=== PATIENT | male | born 1970 | race Hispanic/Latino ===

== ENCOUNTER 2020-10-03 15:00 | Inpatient (IN) | payer BC, OTHER ==
[2020-10-03] MEDS ORDERED: Boostrix 0.5 ML (Tdap) VIAL ONE (15:06)
[2020-10-03] MEDS ORDERED: Fentanyl 100 MCG/2 ML VIAL ONE ×6 (15:15→23:54)
[2020-10-03 15:37] LABS: PTT 26.6 sec (22.9-36.1); Prothrombin Time 13.5 sec (12.0-14.7)
[2020-10-03 15:38] LABS: Hemoglobin 16.3 g/dL (14.0-18.0); Mean Corpuscular HGB CONC 33.1 g/dL (32.0-36.0); Mean Corpuscular Hemoglobin 28.7 pg (27.0-31.0); Mean Corpuscular Volume 86.9 fL (78.0-98.0); Mean Platelet Volume 8.4 fL (7.4-10.4); Platelet Count 284 thou/uL (130-400); RBC Distribution Width 13.6 % (11.5-14.5); Red Blood Cell (RBC) Count 5.66 mill/uL (4.70-6.10)
[2020-10-03] MEDS ORDERED: Morphine 2 MG/ML VIAL SLOW IVP PRN (15:52)
[2020-10-03] MEDS ORDERED: Ondansetron PF 4 MG/2 ML Vial IVP PRN (15:52)
[2020-10-03] MEDS ORDERED: TETANUS AND DIPHTHERIA TOX/PF 0.5 ML DISP.SYRIN IM ONE (15:52)
[2020-10-03] MEDS ORDERED: HYDROcodone/Acetaminophen 10/325 mg Tablet PO PRN (15:52)
[2020-10-03] MEDS ORDERED: hydrALAZINE 20 MG/ML VIAL SLOW IVP PRN (15:52)
[2020-10-03 15:53] LABS: ALT (SGPT) 92 U/L (8-55); AST (SGOT) 42 U/L (5-34); Albumin 4.2 g/dL (3.5-5.0); Alkaline Phosphatase 117 U/L (40-110); Anion Gap 24 mmol/L (10-20); BUN (Urea Nitrogen) 21 mg/dL (8.9-20.6); Bilirubin, Total 0.6 mg/dL (0.2-1.2); Calc. Creatinine Clearance 0 mL/min (70-130); Calcium 9.4 mg/dL (7.8-10.44); Carbon Dioxide 20 mmol/L (22-29); Chloride 99 mmol/L (98-107); Globulin 4.7 g/dL (2.4-3.5); Glucose 123 mg/dL (70-105); Potassium 4.5 mmol/L (3.5-5.1); Protein, Total 8.9 g/dL (6.0-8.3); Sodium 138 mmol/L (136-145)
[2020-10-03 16:06] LABS: Eosinophils 1 % (0-10); Lymphocytes 48 % (21-51); MDiff Complete? YES; Monocytes 5 % (0-10); Neutrophil 43 % (42-75); Platelet Morphology Comment Appears Adequate; RBC Morphology Normal; Reactive Lymphocytes 3 % (0-10)
[2020-10-03] MEDS ORDERED: Morphine 2 MG/ML VIAL ONE (16:07)
[2020-10-03] MEDS ORDERED: CEFAZOLIN 2 GM in Premix Bag 1 BAG IVPB SCH (16:20)
[2020-10-03] MEDS ORDERED: Dextrose 50% Abboject 50 ML SYRINGE SLOW IVP PRN (16:54)
[2020-10-03] MEDS ORDERED: Dextrose 5% in Water 1,000 ML IV PRN (16:54)
[2020-10-03] MEDS: Sodium Chloride 0.9% 1,000 ML IV SCH (17:05)
[2020-10-03] MEDS: Morphine 4 MG/ML VIAL SLOW IVP PRN (17:06)
[2020-10-03 17:46] VITALS: BMI 34.3
[2020-10-03 19:44] LABS: SARS-CoV-2 NAA Rapid Test Not Detected (NotDetected)
[2020-10-03] MEDS ORDERED: Midazolam HCl 2 mg/2 ml Vial ONE (20:19)
[2020-10-03] MEDS ORDERED: Rocuronium Bromide 10 MG/ML (10ML VIAL) ONE (20:36)
[2020-10-03] MEDS ORDERED: Dexamethasone 20 MG/5 ML VIAL ONE (20:36)
[2020-10-03] MEDS ORDERED: PROPOFOL 200 MG/20 ML VIAL ONE (20:36)
[2020-10-03] MEDS ORDERED: Lidocaine 1% PF 5 ML VIAL ONE (20:36)
[2020-10-03] MEDS ORDERED: Ondansetron PF 4 MG/2 ML Vial ONE (20:36)
[2020-10-03] MEDS ORDERED: Glycopyrrolate 0.2 MG/ML 5 ML SYRINGE ONE (20:36)
[2020-10-03] MEDS ORDERED: Succinylcholine 200 MG/10 ml SYRINGE FS ONE (20:36)
[2020-10-03] MEDS: Famotidine/PF 20 mg/2ml Vial SLOW IVP SCH (22:50)
[2020-10-03] MEDS: Famotidine 20 MG TAB PO SCH (22:50)
[2020-10-03] MEDS ORDERED: Promethazine HCl 25 MG/ML VIAL IM PRN ×2 (22:58→23:44)
[2020-10-03] MEDS ORDERED: Ondansetron HCl/PF 4 MG/2 ML Vial IVP PRN ×2 (22:58→23:44)
[2020-10-03] MEDS ORDERED: HYDROmorphone 2 MG/ML VIAL SLOW IVP PRN (22:58)
[2020-10-03] MEDS ORDERED: Promethazine HCl 25 MG/ML VIAL SLOW IVP PRN ×2 (22:58→23:44)
[2020-10-03] MEDS ORDERED: Meperidine HCl/PF 25 MG/ML VIAL ONE (23:08)
[2020-10-03] MEDS ORDERED: Meperidine HCl/PF 25 MG/ML VIAL SLOW IVP PRN ×2 (23:44)
[2020-10-04] MEDS: CEFAZOLIN 2 GM in Premix Bag 1 BAG IVPB SCH ×3 (01:02→17:15)
[2020-10-04] MEDS: HYDROcodone/Acetaminophen 10/325 mg Tablet PO PRN ×4 (01:03→23:07)
[2020-10-04] MEDS: Morphine 4 MG/ML VIAL SLOW IVP PRN ×2 (02:54→05:34)
[2020-10-04 05:46] LABS: INR-International Normal Ratio 1.1; Prothrombin Time 13.9 sec (12.0-14.7)
[2020-10-04 05:47] LABS: PTT 29.8 sec (22.9-36.1)
[2020-10-04 05:55] LABS: #Lymphocytes 1.2 thou/uL (1.20-3.40); #Monocytes 0.6 thou/uL (0.11-0.59); #Neutrophils 14.2 thou/uL (1.40-6.50); %Eosinophils 0.1 % (0.0-10.0); %Lymphocytes 7.4 % (21.0-51.0); %Monocytes 3.8 % (0.0-10.0); %Neutrophils 88.7 % (42.0-75.0); Hemoglobin 13.8 g/dL (14.0-18.0); Mean Corpuscular HGB CONC 33.2 g/dL (32.0-36.0); Mean Corpuscular Volume 87.4 fL (78.0-98.0); Platelet Count 218 thou/uL (130-400); RBC Distribution Width 13.3 % (11.5-14.5); Red Blood Cell (RBC) Count 4.74 mill/uL (4.70-6.10)
[2020-10-04 06:08] LABS: ALT (SGPT) 63 U/L (8-55); AST (SGOT) 36 U/L (5-34); Albumin 3.7 g/dL (3.5-5.0); Alkaline Phosphatase 100 U/L (40-110); Anion Gap 13 mmol/L (10-20); BUN (Urea Nitrogen) 13 mg/dL (8.9-20.6); Bilirubin, Total 0.8 mg/dL (0.2-1.2); Calc. Creatinine Clearance 144 mL/min (70-130); Calcium 8.2 mg/dL (7.8-10.44); Carbon Dioxide 25 mmol/L (22-29); Chloride 102 mmol/L (98-107); Globulin 3.6 g/dL (2.4-3.5); Glucose 150 mg/dL (70-105); Potassium 4.2 mmol/L (3.5-5.1); Protein, Total 7.3 g/dL (6.0-8.3); Sodium 136 mmol/L (136-145)
[2020-10-04] MEDS: Sodium Chloride 0.9% 1,000 ML IV SCH ×2 (08:04→17:37)
[2020-10-04] MEDS: Famotidine/PF 20 mg/2ml Vial SLOW IVP SCH ×2 (08:05→21:18)
[2020-10-04] MEDS: Famotidine 20 MG TAB PO SCH ×3 (08:06→21:15)
[2020-10-04] MEDS ORDERED: CEFAZOLIN 2 GM in Premix Bag 1 BAG IVPB SCH (12:30)
[2020-10-04] MEDS: traMADol HCl 50 MG TAB PO PRN (13:17)
[2020-10-04] MEDS: Acetaminophen 500 MG TAB PO PRN (13:18)
[2020-10-05] MEDS: Sodium Chloride 0.9% 1,000 ML IV SCH ×2 (04:54→13:42)
[2020-10-05] MEDS ORDERED: Fentanyl 250 MCG/5 ML VIAL ONE (07:54)
[2020-10-05] MEDS ORDERED: Midazolam HCl 2 mg/2 ml Vial ONE (07:54)
[2020-10-05] MEDS: Famotidine 20 MG TAB PO SCH ×2 (08:05→21:26)
[2020-10-05] MEDS: Famotidine/PF 20 mg/2ml Vial SLOW IVP SCH ×2 (08:06→21:27)
[2020-10-05] MEDS ORDERED: Meperidine HCl/PF 25 MG/ML VIAL SLOW IVP PRN ×2 (08:06→11:15)
[2020-10-05] MEDS ORDERED: Ondansetron HCl/PF 4 MG/2 ML Vial IVP PRN ×2 (08:06→11:15)
[2020-10-05] MEDS ORDERED: Promethazine HCl 25 MG/ML VIAL SLOW IVP PRN (08:06)
[2020-10-05] MEDS ORDERED: Promethazine HCl 25 MG/ML VIAL IM PRN (08:06)
[2020-10-05] MEDS ORDERED: Lidocaine 1% PF 5 ML VIAL ONE (08:48)
[2020-10-05] MEDS ORDERED: Ketorolac Tromethamine 30 MG/ML VIAL ONE (08:48)
[2020-10-05] MEDS ORDERED: PROPOFOL 200 MG/20 ML VIAL ONE (08:48)
[2020-10-05] MEDS ORDERED: Rocuronium Bromide 10 MG/ML (10ML VIAL) ONE (08:48)
[2020-10-05] MEDS ORDERED: Ondansetron PF 4 MG/2 ML Vial ONE (08:48)
[2020-10-05] MEDS ORDERED: Glycopyrrolate 0.2 MG/ML 5 ML SYRINGE ONE (08:48)
[2020-10-05] MEDS ORDERED: Bupivacaine 0.25% HCL 30 ML VIAL ONE (09:00)
[2020-10-05] MEDS ORDERED: Lidocaine 1% w/Epinephrine 1:100K 20 ML VIAL ONE (09:00)
[2020-10-05] MEDS ORDERED: Fentanyl 100 MCG/2 ML VIAL ONE (10:41)
[2020-10-05] MEDS ORDERED: Non-Formulary Medication 1 EACH PO PRN (11:12)
[2020-10-05] MEDS ORDERED: Ketorolac Tromethamine 30 MG/ML VIAL IVP PRN (11:15)
[2020-10-05] MEDS ORDERED: Morphine Sulfate 2 MG/ML SYRINGE SLOW IVP PRN (11:15)
[2020-10-05] MEDS ORDERED: Ketorolac Tromethamine 30 MG/ML VIAL IM/IV PRN (11:15)
[2020-10-05] MEDS ORDERED: Meperidine HCl/PF 25 MG/ML VIAL IV PRN (11:15)
[2020-10-05] MEDS ORDERED: HYDROmorphone 2 MG/ML VIAL SLOW IVP PRN (11:15)
[2020-10-05] MEDS ORDERED: PACU-Morphine 4MG/ML VIAL SLOW IVP PRN (11:15)
[2020-10-05] MEDS ORDERED: Promethazine HCl 25 MG/ML VIAL IM/IV PRN (11:15)
[2020-10-05] MEDS: Morphine 4 MG/ML VIAL SLOW IVP PRN (11:31)
[2020-10-05] MEDS: HYDROcodone/Acetaminophen 10/325 mg Tablet PO PRN ×2 (12:21→18:36)
[2020-10-05] MEDS: CEFAZOLIN 2 GM in Premix Bag 1 BAG IVPB SCH ×2 (13:40→21:27)
[2020-10-05] MEDS: traMADol HCl 50 MG TAB PO PRN ×2 (17:01→22:44)
[2020-10-05] MEDS: Ibuprofen 600 MG TAB PO PRN (17:02)
[2020-10-06] MEDS: HYDROcodone/Acetaminophen 10/325 mg Tablet PO PRN ×4 (00:21→22:08)
[2020-10-06] MEDS: traMADol HCl 50 MG TAB PO PRN ×2 (04:00→08:23)
[2020-10-06] MEDS: Ibuprofen 600 MG TAB PO PRN ×2 (04:00→08:22)
[2020-10-06] MEDS: Sodium Chloride 0.9% 1,000 ML IV SCH ×3 (04:02→20:49)
[2020-10-06] MEDS: CEFAZOLIN 2 GM in Premix Bag 1 BAG IVPB SCH (05:00)
[2020-10-06 05:22] LABS: #Eosinphils 0.1 thou/uL (0.0-0.7); #Lymphocytes 2.3 thou/uL (1.20-3.40); #Monocytes 1.5 thou/uL (0.11-0.59); #Neutrophils 11.3 thou/uL (1.40-6.50); %Basophils 0.2 % (0.0-1.0); %Eosinophils 0.4 % (0.0-10.0); %Lymphocytes 15.2 % (21.0-51.0); %Monocytes 9.8 % (0.0-10.0); %Neutrophils 74.4 % (42.0-75.0); Hemoglobin 12.6 g/dL (14.0-18.0); Mean Corpuscular HGB CONC 31.4 g/dL (32.0-36.0); Mean Corpuscular Hemoglobin 27.7 pg (27.0-31.0); Mean Corpuscular Volume 88.2 fL (78.0-98.0); Mean Platelet Volume 7.6 fL (7.4-10.4); Platelet Count 173 thou/uL (130-400); RBC Distribution Width 13.4 % (11.5-14.5); Red Blood Cell (RBC) Count 4.56 mill/uL (4.70-6.10); White Blood Cell (WBC) Count 15.2 thou/uL (4.8-10.8)
[2020-10-06] MEDS: Famotidine 20 MG TAB PO SCH ×2 (08:23→20:45)
[2020-10-06] MEDS: Famotidine/PF 20 mg/2ml Vial SLOW IVP SCH ×2 (08:24→20:49)
[2020-10-06] MEDS: Acetaminophen 500 MG TAB PO PRN (22:06)
[2020-10-07] MEDS: Sodium Chloride 0.9% 1,000 ML IV SCH (05:56)
[2020-10-07 05:58] LABS: #Eosinphils 0.2 thou/uL (0.0-0.7); #Monocytes 1.5 thou/uL (0.11-0.59); #Neutrophils 8.6 thou/uL (1.40-6.50); %Basophils 0.2 % (0.0-1.0); %Eosinophils 1.5 % (0.0-10.0); %Lymphocytes 22.6 % (21.0-51.0); %Neutrophils 64.7 % (42.0-75.0); Hemoglobin 10.6 g/dL (14.0-18.0); Mean Corpuscular HGB CONC 32.3 g/dL (32.0-36.0); Mean Corpuscular Hemoglobin 28.4 pg (27.0-31.0); Mean Corpuscular Volume 87.9 fL (78.0-98.0); Mean Platelet Volume 7.5 fL (7.4-10.4); Platelet Count 197 thou/uL (130-400); RBC Distribution Width 13.6 % (11.5-14.5); Red Blood Cell (RBC) Count 3.74 mill/uL (4.70-6.10); White Blood Cell (WBC) Count 13.3 thou/uL (4.8-10.8)
[2020-10-07] MEDS ORDERED: Cyclobenzaprine 10 MG TAB PO PRN (07:35)
[2020-10-07] MEDS ORDERED: traMADol HCl 50 MG TAB PO SCH (07:45)
[2020-10-07] MEDS ORDERED: Ferrous Sulfate 325 MG TAB PO SCH (08:00)
[2020-10-07] MEDS ORDERED: Ascorbic Acid 500 mg Chewable Tablet PO SCH (09:00)
[2020-10-07] MEDS: Ascorbic Acid 500 mg Chewable Tablet PO SCH ×2 (09:08→20:13)
[2020-10-07] MEDS: Ferrous Sulfate 325 MG TAB PO SCH ×2 (09:08→20:14)
[2020-10-07] MEDS: Famotidine 20 MG TAB PO SCH (09:08)
[2020-10-07] MEDS: Polyethylene Glycol 3350 17 GM Packet PO SCH (09:09)
[2020-10-07] MEDS: Senokot S 8.6-50 MG TAB PO SCH ×2 (09:10→20:14)
[2020-10-07] MEDS: Ondansetron ODT 4 MG TAB PO PRN (11:41)
[2020-10-07] MEDS: Enoxaparin Sodium 30 MG/0.3 ML SYRINGE SC SCH ×2 (11:42→20:14)
[2020-10-07] MEDS: traMADol HCl 50 MG TAB PO SCH ×3 (13:51→23:42)
[2020-10-07] MEDS: traMADol HCl 50 MG TAB PO PRN ×2 (18:21→23:41)
[2020-10-07] MEDS: Ibuprofen 600 MG TAB PO PRN ×2 (18:22→23:42)
[2020-10-07] MEDS: Acetaminophen 500 MG TAB PO PRN ×2 (18:23→23:42)
[2020-10-08] MEDS: traMADol HCl 50 MG TAB PO SCH ×4 (06:03→23:45)
[2020-10-08] MEDS: traMADol HCl 50 MG TAB PO PRN (06:03)
[2020-10-08] MEDS: Acetaminophen 500 MG TAB PO PRN ×2 (06:03→20:32)
[2020-10-08] MEDS: Ibuprofen 600 MG TAB PO PRN (06:04)
[2020-10-08] MEDS: Enoxaparin Sodium 30 MG/0.3 ML SYRINGE SC SCH ×2 (09:08→20:29)
[2020-10-08] MEDS: Ferrous Sulfate 325 MG TAB PO SCH ×2 (09:08→20:29)
[2020-10-08] MEDS: Senokot S 8.6-50 MG TAB PO SCH ×2 (09:08→20:29)
[2020-10-08] MEDS: Ascorbic Acid 500 mg Chewable Tablet PO SCH ×2 (09:08→20:29)
[2020-10-08] MEDS: Polyethylene Glycol 3350 17 GM Packet PO SCH (09:08)
[2020-10-08] MEDS: Ondansetron ODT 4 MG TAB PO PRN (11:14)
[2020-10-09] MEDS: traMADol HCl 50 MG TAB PO SCH ×3 (05:47→18:15)
[2020-10-09] MEDS: Polyethylene Glycol 3350 17 GM Packet PO SCH (08:47)
[2020-10-09] MEDS: Senokot S 8.6-50 MG TAB PO SCH ×2 (08:47→19:45)
[2020-10-09] MEDS: Enoxaparin Sodium 30 MG/0.3 ML SYRINGE SC SCH ×2 (08:47→19:47)
[2020-10-09] MEDS: Ascorbic Acid 500 mg Chewable Tablet PO SCH ×2 (08:47→19:46)
[2020-10-09] MEDS: Ferrous Sulfate 325 MG TAB PO SCH ×2 (08:47→19:46)
[2020-10-09] MEDS: Ondansetron ODT 4 MG TAB PO PRN (12:52)
[2020-10-09] MEDS ORDERED: Scopolamine 1.5 mg/72 hour Patch TD SCH (13:00)
[2020-10-09 19:24] VITALS: BP 124/78; TEMP 100.3
[2020-10-09] MEDS: Acetaminophen 500 MG TAB PO PRN (19:46)
== END 2020-10-09 20:00 | DRG 493 ==
LOC: ERS 15:00 → EEVIPCON 15:00 → SURG A 15:52
PROVIDERS: ADMIT Specialist; ATTEND Specialist
PROC: 0QSG06Z Reposition Right Tibia with Intramedullary Internal Fixation Device, Open Approach (ICD-10-PCS; 2020-10-03)
PROC: 0QSG04Z Reposition Right Tibia with Internal Fixation Device, Open Approach (ICD-10-PCS; 2020-10-03)
PROC: 0QSH04Z Reposition Left Tibia with Internal Fixation Device, Open Approach (ICD-10-PCS; principal; 2020-10-05)
DX: S82.51XA Displaced fracture of medial malleolus of right tibia, initial encounter for closed fracture (principal); S82.142A Displaced bicondylar fracture of left tibia, initial encounter for closed fracture; S51.832A Puncture wound without foreign body of left forearm, initial encounter; W01.0XXA Fall on same level from slipping, tripping and stumbling without subsequent striking against object, initial encounter; S82.301A Unspecified fracture of lower end of right tibia, initial encounter for closed fracture; S82.831A Other fracture of upper and lower end of right fibula, initial encounter for closed fracture; Z20.822 Contact with and (suspected) exposure to COVID-19; W34.00XA Accidental discharge from unspecified firearms or gun, initial encounter
CPT/HCPCS: 29515; 36415; 76000; 80053; 85025; 85610; 85730; 86850; 86900; 86901; 90471; 90714; 90715; 96365; 96375; C1713; C1769; G0390; J0690; J1100; J1650; J1885; J2175; J2250; J2270; J2405; J2704; J3010; Q0162; S0020; S0028; U0002

== ENCOUNTER 2021-03-21 12:07 | Outpatient (CLI) | payer OTHER ==
[2021-03-22 17:40] LABS: SARS-CoV-2 PCR by NAA Not Detected (NotDetected)
== END 2021-03-21 12:08 | disposition home or self-care (01) ==
LOC: LABBT 12:07
PROVIDERS: ATTEND Orthopaedic Surgery
DX: Z01.812 Encounter for preprocedural laboratory examination (principal); T85.848A Pain due to other internal prosthetic devices, implants and grafts, initial encounter; Z20.822 Contact with and (suspected) exposure to COVID-19
CPT/HCPCS: U0003; U0005

== ENCOUNTER 2021-03-25 11:48 | Day surgery (SDC) | payer OTHER ==
[2021-03-24 09:43] VITALS: BMI 34.9
[2021-03-25] MEDS ORDERED: cefOXitin Sodium/Dextrose 2 GM/50 ML BAG ONE (13:02)
[2021-03-25] MEDS ORDERED: ceFAZolin 2 GM/DEX 5% 100 ML BAG ONE (13:02)
[2021-03-25] MEDS ORDERED: Fentanyl 100 MCG/2 ML VIAL ONE ×3 (13:38→15:25)
[2021-03-25] MEDS ORDERED: Ondansetron PF 4 MG/2 ML Vial ONE (13:56)
[2021-03-25] MEDS ORDERED: PROPOFOL 200 MG/20 ML VIAL ONE (13:56)
[2021-03-25] MEDS ORDERED: Lidocaine 1% PF 5 ML VIAL ONE (13:56)
[2021-03-25] MEDS ORDERED: Ketorolac Tromethamine 30 MG/ML VIAL ONE (13:56)
[2021-03-25] MEDS ORDERED: Dexamethasone 20 MG/5 ML VIAL ONE (13:56)
[2021-03-25] MEDS ORDERED: HYDROmorphone 2 MG/ML VIAL ONE (15:30)
== END 2021-03-25 18:40 | disposition home or self-care (01) ==
LOC: SDC 11:48
PROVIDERS: ATTEND Orthopaedic Surgery
PROC: 0QPG04Z Removal of Internal Fixation Device from Right Tibia, Open Approach (ICD-10-PCS; principal; 2021-03-25)
DX: T84.84XA Pain due to internal orthopedic prosthetic devices, implants and grafts, initial encounter (principal); E78.5 Hyperlipidemia, unspecified; Z79.899 Other long term (current) drug therapy
CPT/HCPCS: 76000; J0694; J1100; J1170; J1885; J2405; J2704; J3010

== ENCOUNTER 2021-04-24 12:37 | Outpatient (CLI) | payer OTHER ==
[2021-04-25 01:42] LABS: SARS-CoV-2 PCR by NAA Not Detected (NotDetected)
== END 2021-04-24 12:38 | disposition home or self-care (01) ==
LOC: LABBT 12:37
PROVIDERS: ATTEND Orthopaedic Surgery
DX: Z01.812 Encounter for preprocedural laboratory examination (principal); Z20.822 Contact with and (suspected) exposure to COVID-19
CPT/HCPCS: U0003; U0005

== ENCOUNTER 2021-04-29 10:27 | Day surgery (SDC) | payer OTHER ==
[2021-04-28 09:42] VITALS: BMI 34.9
[2021-04-29] MEDS ORDERED: ceFAZolin 2 GM/DEX 5% 100 ML BAG ONE (11:10)
[2021-04-29] MEDS ORDERED: HYDROmorphone 0.5 MG/0.5 ML SYRINGE ONE (12:05)
[2021-04-29] MEDS ORDERED: Dexmedetomidine 200 MCG/2 ML VIAL ONE (12:06)
[2021-04-29] MEDS ORDERED: Dexamethasone 20 MG/5 ML VIAL ONE (12:27)
[2021-04-29] MEDS ORDERED: Ketorolac Tromethamine 30 MG/ML VIAL ONE (12:27)
[2021-04-29] MEDS ORDERED: Ondansetron PF 4 MG/2 ML Vial ONE (12:27)
[2021-04-29] MEDS ORDERED: Lidocaine 1% PF 5 ML VIAL ONE (12:27)
[2021-04-29] MEDS ORDERED: PROPOFOL 200 MG/20 ML VIAL ONE (12:27)
[2021-04-29] MEDS ORDERED: Fentanyl 100 MCG/2 ML VIAL ONE ×2 (13:38→13:41)
[2021-04-29] MEDS ORDERED: HYDROmorphone 2 MG/ML VIAL ONE (13:39)
[2021-04-29] MEDS ORDERED: HYDROcodone/Acetaminophen 5/325 mg Tablet ONE (15:46)
== END 2021-04-29 16:24 | disposition home or self-care (01) ==
LOC: SDC 10:27
PROVIDERS: ATTEND Orthopaedic Surgery
PROC: 0QPG04Z Removal of Internal Fixation Device from Right Tibia, Open Approach (ICD-10-PCS; principal; 2021-04-29)
DX: S82.141D Displaced bicondylar fracture of right tibia, subsequent encounter for closed fracture with routine healing (principal); E78.5 Hyperlipidemia, unspecified; Z98.890 Other specified postprocedural states; Z79.899 Other long term (current) drug therapy; X58.XXXD Exposure to other specified factors, subsequent encounter
CPT/HCPCS: J1100; J1170; J1885; J2405; J2704; J3010

== ENCOUNTER 2021-07-25 06:59 | Outpatient (CLI) | payer BC | END 2021-07-25 07:00 | disposition home or self-care (01) | LOC: BICULT 06:59 | PROVIDERS: ATTEND Family Medicine | DX: R79.89 Other specified abnormal findings of blood chemistry (principal); R93.421 Abnormal radiologic findings on diagnostic imaging of right kidney | CPT/HCPCS: 76705 ==

== ENCOUNTER 2025-01-26 11:23 | Emergency (ER) | payer BC, OTHER ==
[2025-01-26 11:55] LABS: Bacteria/HPF None Seen HPF (None Seen); CAUTI Indications for Culture Pelvic or flank pain; Glucose, Urine (Dipstick) Normal (Negative); Leukocyte Negative Leu/uL (Negative); Protein, Urine (Dipstick) Negative (Neg-Trace); RBC/HPF 0-3 HPF (0-3); Specific Gravity, Urine 1.020 (1.002-1.036); WBC/HPF 0-3 HPF (0-3)
[2025-01-26 11:57] LABS: Urine Culture Reflex No No
[2025-01-26 13:14] LABS: #Basophils 0.03 10x3/uL (0.0-0.2); #Eosinophils 0.18 10x3/uL (0.0-0.7); #Monocytes 0.85 10x3/uL (0.11-0.59); #Neutrophils 7.01 10x3/uL (1.40-6.50); %Basophils 0.3 % (0.0-1.0); %Eosinophils 1.6 % (0.0-10.0); %Lymphocytes 26.8 % (21.0-51.0); %Monocytes 7.6 % (0.0-10.0); %Neutrophils 63.1 % (42.0-75.0); Hematocrit 43.7 % (42.0-52.0); Hemoglobin 14.5 g/dL (14.0-18.0); Mean Corpuscular Hemoglobin 28.0 pg (27.0-31.0); Mean Corpuscular Volume 84.5 fL (78.0-98.0); Platelet Count 190 10x3/uL (130-400); Red Blood Cell (RBC) Count 5.17 mill/uL (4.70-6.10); White Blood Cell (WBC) Count 11.12 10x3/uL (4.8-10.8)
[2025-01-26 13:29] LABS: ALT (SGPT) 22 U/L (Less than 45); AST (SGOT) 18 U/L (11-34); Albumin 3.7 g/dL (3.1-4.5); Alkaline Phosphatase 99 U/L (40-110); Anion Gap 13 mmol/L (10-20); BUN (Urea Nitrogen) 23 mg/dL (8.4-25.7); Bilirubin, Total 0.6 mg/dL (0.3-1.2); Calc. Creatinine Clearance 0 mL/min (70-130); Calcium 8.9 mg/dL (7.8-10.44); Carbon Dioxide 23 mmol/L (22-29); Chloride 105 mmol/L (98-107); Globulin 4.5 g/dL (2.4-3.5); Glucose 102 mg/dL (70-105); Lipase 23 U/L (8-78); Potassium 4.2 mmol/L (3.5-5.1); Sodium 137 mmol/L (136-145)
[2025-01-26] MEDS ORDERED: Ketorolac Tromethamine 30 MG (1 mL) VIAL ONE (13:44)
[2025-01-26] MEDS ORDERED: Ondansetron PF 4 MG/2 ML Vial ONE (13:44)
== END 2025-01-26 14:23 | disposition home or self-care (01) ==
LOC: ERS 11:23
DX: N13.2 Hydronephrosis with renal and ureteral calculous obstruction (principal); N17.9 Acute kidney failure, unspecified; R03.0 Elevated blood-pressure reading, without diagnosis of hypertension
CPT/HCPCS: 74176; 80053; 81001; 83690; 85025; 87086; 93005; 96374; 96375; J1885; J2270; J2405